=== PATIENT | male | born 2000 | race American Indian/Alaskan Native ===

== ENCOUNTER 2020-09-20 18:02 | Emergency (ER) | payer SELFPAY ==
--- NOTE | 2020-09-20 18:09 | Event Note ---
ED Screening Note Date of service: 09/20/20 Time: 18:08 ED Screening Note: 20-year-old -[place] male presents to the emergency room requesting a depression screen. Patient states he just got off work. And having thoughts of hurting himself. This initial assessment/diagnostic orders/clinical plan/treatment(s) is/are subject to change based on patients health status, clinical progression and re- assessment by fellow clinical providers in the ED. Further treatment and workup at subsequent clinical providers discretion. Patient/guardian urged not to elope from the ED as their condition may be serious if not clinically assessed and managed. Initial orders include:
--- NOTE | 2020-09-20 18:57 | Emergency Department Report ---
ED General Adult HPI - General Chief complaint: Medical Clearance Stated complaint: DEPRESSION TEST PUI?: No Time Seen by Provider: 09/20/20 18:47 Source: patient, RN notes reviewed Mode of arrival: Ambulatory Limitations: No Limitations - History of Present Illness Initial comments: The patient was evaluated in the emergency department for symptoms described in the history of present illness. He/she was evaluated in the context of the global COVID-19 pandemic, which necessitated consideration that the patient might be at risk for infection with the virus that causes COVID-19. Institutional protocols and algorithms that pertain to the evaluation of patients at risk for COVID-19 are in a state of rapid change based on i nformation released by regulatory bodies including the CDC and federal and state organizations. These policies and algorithms were followed during the patient's care in the emergency department. Please note that these policies, procedures and recommendations changed on a rapid basis. This patient is a pleasant and cooperative 20-year-old gentleman who is not known to myself previously. He presents to the ER with a chief complaint of depression screen requested. He denies physical pain. He denies homicidality, suicidality, overdose, access to guns, firearms. Denies fever, cough, loss of taste, loss of smell and urinary symptoms. He reports that he is feeling somewhat stressed out and depressed about the current COVID-19 pandemic. Symptoms are minimal, constant, painless, do not radiate anywhere, and he denies significant exacerbating, or relieving factors that he is aware of. -: Gradual Improves with: none Worsens with: none Associated Symptoms: denies other symptoms - Related Data Allergies Allergy/AdvReac Type Severity Reaction Status Date / Time No Known Allergies Allergy Unverified 09/20/20 18:10 ED Review of Systems ROS: Stated complaint: DEPRESSION TEST Other details as noted in HPI Comment: All other systems reviewed and negative Psychiatric: depression. denies: auditory hallucinations, visual hallucinations, homicidal thoughts, suicidal thoughts ED Past Medical Hx - Past Medical History Previous Medical History?: No - Surgical History Past Surgical History?: No - Social History Smoking Status: Current Every Day Smoker ED Physical Exam - General Limitations: No Limitations General appearance: alert, in no apparent distress - Head Head exam: Present: atraumatic, normocephalic - Eye Eye exam: Present: normal appearance, EOMI. Absent: nystagmus - ENT ENT exam: Present: normal exam, normal orophraynx, mucous membranes moist, normal external ear exam - Neck Neck exam: Present: normal inspection, full ROM. Absent: tenderness, meningismus - Respiratory Respiratory exam: Present: normal lung sounds bilaterally. Absent: respiratory distress, wheezes, rales, rhonchi, stridor, decreased breath sounds - Cardiovascular Cardiovascular Exam: Present: normal rhythm, bradycardia, normal heart sounds. Absent: systolic murmur, diastolic murmur, rubs, gallop - GI/Abdominal GI/Abdominal exam: Present: soft. Absent: distended, tenderness, guarding, rebound, rigid, pulsatile mass - Rectal Rectal exam: Present: deferred - Extremities Exam Extremities exam: Present: normal inspection, full ROM, other (2+ pulses noted in the bilateral upper and lower extremities. There is no palpable cord. negative Homans sign. Muscular compartments are soft. The pelvis is stable.). Absent: pedal edema, calf tenderness - Back Exam Back exam: Present: normal inspection, full ROM. Absent: tenderness, CVA tenderness (R), CVA tenderness (L), paraspinal tenderness, vertebral tenderness - Neurological Exam Neurological exam: Present: alert, oriented X3, normal gait, other (No facial droop. Tongue midline. Extraocular movements intact bilaterally. Facial s ensation intact to light touch in V1, V2, V3 distribution bilaterally. 5 and a 5 strength in 4 extremities. Sensation intact to light touch in 4 extremities.). Absent: motor sensory deficit - Psychiatric Psychiatric exam: Present: normal affect, normal mood. Absent: anxious, flat affect, manic, homicidal ideation, suicidal ideation - Skin Skin exam: Present: warm, dry, intact, normal color. Absent: rash ED Course Vital Signs 09/20/20 18:10 Temperature 98.1 F Pulse Rate 53 L Respiratory 19 Rate Blood Pressure 137/92 O2 Sat by Pulse 100 Oximetry ED Medical Decision Making - Medical Decision Making Vital Signs 09/20/20 18:10 Temperature 98.1 F Pulse Rate 53 L Respiratory 19 Rate Blood Pressure 137/92 O2 Sat by Pulse 100 Oximetry Differential diagnosis, including but not limited to: Dysthymia, depression, general medical exam Assessment and: 20-year-old gentleman, who is afebrile, with reassuring vital signs, who is clinically sober, with a GCS of 15, not homicidal, not suicidal, exhibits decision-making capacity, who is not in an acute psychiatric crisis, and does not meet criteria for involuntary hold, confinement, or 1013. I had extensive discussion with the patient. He is alert, oriented, sober, able to add, subtract, multiply, divided, and recall 3 out of 3 words, at x0, and 5 minutes. He also demonstrates lucid thought process, and was able to tell me that he has [employer], Blue Shield insurance. I instructed the patient that he may follow- up as an outpatient, and that he may even seek telehealth options by contacting his insurance provider, discussed with therapists in the comfort of his own home. He expressed understanding, and indicated he did not know that this was an option. Patient does not appear to have an emergent medical or psychiatric condition at this time that requires further ER evaluation. Critical care attestation.: If time is entered above; I have spent that time in minutes in the direct care of this critically ill patient, excluding procedure time. ED Disposition Clinical Impression: General medical exam Disposition: DC-01 TO HOME OR SELFCARE Is pt being admited?: No Does the pt Need Aspirin: No Condition: Stable Additional Instructions: As we discussed, patient may contact his private insurance company, and seek options for telehealth evaluation and counseling. In addition, patient may follow-up with any of the local outpatient psychiatric facilities, including [facility] at his discretion. Recommend routine follow-up with a primary care doctor within the next 6 weeks. At the moment, patient does not have an emergent medical condition that would preclude discharge, or preclude psychiatric evaluation, counseling and therapy. Please return to the emergency room right away with new pain, worsened pain, migration of pain, projectile vomiting, change in mental status, confusion, inability to tolerate liquid feeds, new, worsened or different symptoms not present on the initial emergency room evaluation. [facility] Mental health clinic in [place], [place] COVID-19 info: [facility] Get online care: [facility] Address: [address], [place] [address] Open 24 hours [facility] Get online care: [facility] Located in: [facility] Address: [address] [place] [id number] [facility] Mental health clinic in the [place], [place] Address: [address], [place] [address] Referrals: RONAL DORAN MD [Staff Physician] - 3-5 Days [facility] [Provider Group] - 3-5 Days [facility] [Outside] - 3-5 Days
[2020-09-20 19:08] VITALS: BP 141/82
== END 2020-09-20 19:40 | disposition home or self-care (01) ==
LOC: ED 18:02
DX: F32.9 Major depressive disorder, single episode, unspecified (principal); F17.200 Nicotine dependence, unspecified, uncomplicated; Z00.00 Encounter for general adult medical examination without abnormal findings
CPT/HCPCS: 99282